=== PATIENT | male | born 1995 | race Caucasian/White ===

== ENCOUNTER 2016-07-17 02:47 | Emergency (ER) | payer OTHER ==
[~2016-07-17] VITALS: Ht 185.4 cm; Wt 79.4 kg
[2016-07-17 02:47] VITALS: BP 133/78; PULSE 98; RESP 18; TEMP 97.6; O2SAT 98
[2016-07-17 03:03] VITALS: BP 133/78; PULSE 98; RESP 18; TEMP 97.6; O2SAT 98
== END 2016-07-17 03:03 ==
LOC: SED 02:47
DX: Z02.89 Encounter for other administrative examinations (principal)
CPT/HCPCS: 99283